=== PATIENT | male | born 1950 | race Caucasian/White ===

== ENCOUNTER 2017-02-19 22:41 | Inpatient (IN) | payer OTHER, BC ==
[~2017-02-19] VITALS: Ht 190.5 cm; Wt 96.8 kg
[~2017-02-19 22:41] MED LIST: IOHEXOL 350 MG/ML 10 ML VIAL (for RAD DIAG) IVCONTRAST ONE
[2017-02-19 22:43] VITALS: BP 157/83; PULSE 72; RESP 24; TEMP 97.8; O2SAT 96
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
[2017-02-19] MEDS ORDERED: DIPHTH/TETANUS/ACEL PERTUSSIS (BOOSTER) 0.5 ML VIAL/PFS IM ONE (23:00)
[2017-02-19 23:16] LABS: AUTOMATED NEUTROPHIL # 10.7 TH/MM3 (1.8-7.7); BASOPHIL % 0.3 % (0.0-2.0); EOSINOPHIL # 0.1 TH/MM3 (0-0.4); HEMATOCRIT 40.5 % (39.0-51.0); HEMOGLOBIN 13.7 GM/DL (13.0-17.0); LYMPH % 18.6 % (9.0-44.0); LYMPHOCYTE # 2.7 TH/MM3 (1.0-4.8); MEAN CORPUSCULAR HEMOGLOBIN 30.7 PG (27.0-34.0); MEAN CORPUSCULAR HGB CONC 33.7 % (32.0-36.0); MEAN PLATELET VOLUME 8.9 FL (7.0-11.0); MONO % 7.5 % (0.0-8.0); MONOCYTE # 1.1 TH/MM3 (0-0.9); NEUT % 72.6 % (16.0-70.0); PLATELET COUNT 342 TH/MM3 (150-450); RED BLOOD COUNT 4.45 MIL/MM3 (4.50-5.90); RED CELL DISTRIBUTION WIDTH 13.6 % (11.6-17.2); WHITE BLOOD COUNT 14.7 TH/MM3 (4.0-11.0)
[2017-02-19 23:26] LABS: PROTHROMBIN TIME - PATIENT 10.5 SEC (9.8-11.6)
[2017-02-19 23:29] LABS: BICARBONATE 22.6 MEQ/L (21.0-32.0); CALCIUM 9.1 MG/DL (8.5-10.1); CREATININE 1.18 MG/DL (0.60-1.30)
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
[2017-02-20] VITALS (7 sets, daily range): BP systolic 131–151; BP diastolic 76–81; PULSE 66–76; RESP 18; TEMP 98.1–99.2; O2SAT 92–98
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
[2017-02-20] MEDS ORDERED: LIDOCAINE HCL 1% 50 ML VIAL INFIL ONE (00:30)
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
[2017-02-20] MEDS ORDERED: ONDANSETRON HCL 4 MG/2 ML VIAL IV PUSH PRN (06:30)
[2017-02-20] MEDS ORDERED: MORPHINE SULFATE 8 MG/ML INJ IV PUSH PRN (06:30)
[2017-02-20] MEDS ORDERED: LACTULOSE SYRUP 20 GM/30 ML CUP PO PRN (06:30)
[2017-02-20] MEDS: ACETAMINOPHEN 1000 MG/100 ML 100 ML IV SCH ×4 (06:45→23:53)
[2017-02-20] MEDS: METHOCARBAMOL 500 MG TAB PO SCH ×3 (06:46→19:57)
[2017-02-20] MEDS: LIDOCAINE HCL 5% PATCH T-DERMAL SCH (08:30)
[2017-02-20] MEDS: FOLIC ACID 1 MG TAB PO SCH (08:30)
[2017-02-20] MEDS: DOCUSATE SODIUM 50 MG/SENNA 8.6 MG TAB PO SCH ×2 (08:30→19:58)
[2017-02-20] MEDS: THIAMINE HCL 100 MG TAB PO SCH (08:30)
[2017-02-20] MEDS: BACITRACIN TOP OINT 15 GM TUBE TOP SCH ×2 (08:30→19:58)
[2017-02-20] MEDS: MULTIVITAMIN TAB PO SCH (08:31)
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
[2017-02-20 10:20] LABS: AUTOMATED NEUTROPHIL # 13.6 TH/MM3 (1.8-7.7); BASOPHIL % 0.1 % (0.0-2.0); HEMATOCRIT 41.3 % (39.0-51.0); HEMOGLOBIN 13.7 GM/DL (13.0-17.0); LYMPH % 6.2 % (9.0-44.0); MEAN CELL VOLUME 90.8 FL (80.0-100.0); MEAN CORPUSCULAR HEMOGLOBIN 30.2 PG (27.0-34.0); MEAN CORPUSCULAR HGB CONC 33.3 % (32.0-36.0); MEAN PLATELET VOLUME 8.9 FL (7.0-11.0); MONO % 11.3 % (0.0-8.0); MONOCYTE # 1.9 TH/MM3 (0-0.9); NEUT % 82.4 % (16.0-70.0); PLATELET COUNT 333 TH/MM3 (150-450); RED BLOOD COUNT 4.54 MIL/MM3 (4.50-5.90); RED CELL DISTRIBUTION WIDTH 13.7 % (11.6-17.2); WHITE BLOOD COUNT 16.5 TH/MM3 (4.0-11.0)
[2017-02-20 10:48] LABS: ALBUMIN 3.7 GM/DL (3.4-5.0); AST (GOT) 126 U/L (15-37); BICARBONATE 27.9 MEQ/L (21.0-32.0); BLOOD UREA NITROGEN 10 MG/DL (7-18); CALCIUM 8.9 MG/DL (8.5-10.1); CHLORIDE 105 MEQ/L (98-107); CREATININE 1.03 MG/DL (0.60-1.30); GLOMERULAR FILTRATION RATE 73 ML/MIN (>89); GLUCOSE,RANDOM 93 MG/DL (74-106); SODIUM (NA) 141 MEQ/L (136-145)
[2017-02-20 10:53] LABS: ALKALINE PHOSPHATASE 84 U/L (45-117); ALT (GPT) 95 U/L (12-78); TOTAL BILIRUBIN ADULT 0.5 MG/DL (0.2-1.0); TOTAL PROTEIN 6.8 GM/DL (6.4-8.2)
[2017-02-20] MEDS ORDERED: BACITRACIN TOP OINT 15 GM TUBE TOP SCH (11:15)
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
[2017-02-20] MEDS ORDERED: KETOROLAC TROMETHAMINE 30 MG/ML (IVP) VIAL IV PUSH SCH (12:00)
[2017-02-20] MEDS: ENOXAPARIN SODIUM 30 MG/0.3 ML SYRINGE SQ SCH ×2 (13:13→23:53)
[2017-02-20] MEDS: RESP: ALBUTEROL 2.5 MG/IPRATROPIUM 0.5 MG NEB (PRN) NEB ×2 (13:49→19:29)
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
[2017-02-21] VITALS (9 sets, daily range): BP systolic 144–192; BP diastolic 72–86; PULSE 58–99; RESP 16–18; TEMP 98.2–101.8; O2SAT 92–97
[2017-02-21] MEDS: RESP: ALBUTEROL 2.5 MG/IPRATROPIUM 0.5 MG NEB (PRN) NEB ×3 (04:06→20:29)
[2017-02-21] MEDS: METHOCARBAMOL 500 MG TAB PO SCH ×3 (05:10→22:43)
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
[2017-02-21 07:22] LABS: HEMATOCRIT 42.7 % (39.0-51.0); HEMOGLOBIN 14.3 GM/DL (13.0-17.0); MEAN CELL VOLUME 91.3 FL (80.0-100.0); MEAN CORPUSCULAR HEMOGLOBIN 30.6 PG (27.0-34.0); MEAN CORPUSCULAR HGB CONC 33.5 % (32.0-36.0); MEAN PLATELET VOLUME 9.6 FL (7.0-11.0); PLATELET COUNT 347 TH/MM3 (150-450); RED BLOOD COUNT 4.67 MIL/MM3 (4.50-5.90); RED CELL DISTRIBUTION WIDTH 13.8 % (11.6-17.2); WHITE BLOOD COUNT 19.4 TH/MM3 (4.0-11.0)
[2017-02-21 07:48] LABS: BICARBONATE 24.7 MEQ/L (21.0-32.0); CALCIUM 9.5 MG/DL (8.5-10.1); CREATININE 1.17 MG/DL (0.60-1.30)
[2017-02-21] MEDS: MULTIVITAMIN TAB PO SCH (07:54)
[2017-02-21] MEDS: FOLIC ACID 1 MG TAB PO SCH (07:54)
[2017-02-21] MEDS: LIDOCAINE HCL 5% PATCH T-DERMAL SCH (07:54)
[2017-02-21] MEDS: THIAMINE HCL 100 MG TAB PO SCH (07:54)
[2017-02-21] MEDS: KETOROLAC TROMETHAMINE 30 MG/ML (IVP) VIAL IV PUSH SCH ×3 (07:55→20:50)
[2017-02-21] MEDS: DOCUSATE SODIUM 50 MG/SENNA 8.6 MG TAB PO SCH ×2 (07:55→20:50)
[2017-02-21] MEDS: SODIUM CHLORIDE 0.9% FLUSH 10 ML FLUSH IV FLUSH PRN ×2 (07:56→20:49)
[2017-02-21] MEDS: ENALAPRILAT 1.25 MG/ML VIAL IV PUSH PRN ×2 (07:56→16:21)
[2017-02-21] MEDS: BACITRACIN TOP OINT 15 GM TUBE TOP SCH ×2 (09:00→20:55)
--- NOTE | 2017-02-21 11:48 | HHI.PR ---
Subjective Subjective Notes Feeling better Still has thoracic pain Objective Vitals/I&O Vital Signs Date Time Temp Pulse Resp B/P (MAP) Pulse Ox O2 Delivery O2 Flow Rate FiO2 02/21/17 08:17 92 Nasal Cannula 4.00 02/21/17 08:00 98.6 71 18 181/85 (117) Labs Laboratory Tests Test 02/21/17 04:30 White Blood Count 19.4 Red Blood Count 4.67 Hemoglobin 14.3 Hematocrit 42.7 Mean Corpuscular Volume 91.3 Mean Corpuscular Hemoglobin 30.6 Mean Corpuscular Hemoglobin Concent 33.5 Red Cell Distribution Width 13.8 Platelet Count 347 Mean Platelet Volume 9.6 Blood Urea Nitrogen 14 Creatinine 1.17 Random Glucose 110 Calcium Level 9.5 Sodium Level 137 Potassium Level 4.1 Chloride Level 103 Carbon Dioxide Level 24.7 Anion Gap 9 Estimat Glomerular Filtration Rate 63 Radiology Last Impressions Chest X-Ray 02/20/1725 Signed Impressions: Service Date/Time: Monday, February 20, 2017 07:59 - CONCLUSION: Minimal bibasilar patchiness consistent with atelectasis and/or pneumonia. Clinical correlation is recommended. Pelon Vera MD Maxillofacial CT 02/19/172250 Signed Impressions: Service Date/Time: February 23:43 - CONCLUSION: Intact facial bones. Acute on chronic-appearing sinus disease. Joseph Colon MD Head CT 02/19/172250 Signed Impressions: Service Date/Time: February 23:41 - CONCLUSION: Negative noncontrast head CT. Joseph Colon MD Chest CT 02/19/172250 Signed Impressions: Service Date/Time: February 23:50 - CONCLUSION: 1. Multiple right lower rib fractures with a tiny hemothorax and small size focal area of chest wall emphysema. No pneumothorax. 2. No acute abnormality of the heart or mediastinum. Coronary artery calcification noted. Joseph Colon MD Cervical Spine CT 02/19/172250 Signed Impressions: Service Date/Time: February 23:43 - CONCLUSION: Intact cervical spine. Multilevel degenerative changes as above. Joseph Colon MD Abdomen/Pelvis CT 02/19/17 4557 Signed Impressions: Service Date/Time: February 23:50 - CONCLUSION: No acute abnormality of the abdomen/pelvis. Joseph Colon MD Cardiovascular: Regular Lungs: Clear Abdomen: Non-distended A/P Assessment and Plan stable overall OOB PT IS DVT prophylaxis Marie Mosley MD Feb 21, 2017 11:48
[2017-02-21] MEDS: ENOXAPARIN SODIUM 30 MG/0.3 ML SYRINGE SQ SCH ×2 (12:40→22:43)
[2017-02-21] MEDS ORDERED: ACETAMINOPHEN 325 MG TAB PO PRN (20:45)
[2017-02-22] VITALS (9 sets, daily range): BP systolic 132–157; BP diastolic 65–86; PULSE 61–103; RESP 18; TEMP 95.9–99.5; O2SAT 92–97
[2017-02-22] MEDS: KETOROLAC TROMETHAMINE 30 MG/ML (IVP) VIAL IV PUSH SCH ×4 (03:34→20:08)
[2017-02-22] MEDS: METHOCARBAMOL 500 MG TAB PO SCH ×3 (05:02→22:57)
[2017-02-22] MEDS: BACITRACIN TOP OINT 15 GM TUBE TOP SCH ×2 (09:00→20:08)
[2017-02-22] MEDS: MULTIVITAMIN TAB PO SCH (10:13)
[2017-02-22] MEDS: DOCUSATE SODIUM 50 MG/SENNA 8.6 MG TAB PO SCH ×2 (10:13→20:07)
[2017-02-22] MEDS: THIAMINE HCL 100 MG TAB PO SCH (10:13)
[2017-02-22] MEDS: FOLIC ACID 1 MG TAB PO SCH (10:13)
[2017-02-22] MEDS: LIDOCAINE HCL 5% PATCH T-DERMAL SCH (10:15)
--- NOTE | 2017-02-22 12:57 | HHI.PR ---
Subjective Subjective Notes Feeling better less pain Objective Vitals/I&O Vital Signs Date Time Temp Pulse Resp B/P (MAP) Pulse Ox O2 Delivery O2 Flow Rate FiO2 02/22/17 09:31 96 Nasal Cannula 4.00 02/22/17 08:06 61 02/22/17 07:15 99.5 18 138/67 (90) Radiology Last Impressions Chest X-Ray 02/20/17 0625 Signed Impressions: Service Date/Time: Monday, February 20, 2017 07:59 - CONCLUSION: Minimal bibasilar patchiness consistent with atelectasis and/or pneumonia. Clinical correlation is recommended. Pelon Vera MD Maxillofacial CT 02/19/172250 Signed Impressions: Service Date/Time: February 23:43 - CONCLUSION: Intact facial bones. Acute on chronic-appearing sinus disease. Joseph Colon MD Head CT 02/19/172250 Signed Impressions: Service Date/Time: February 23:41 - CONCLUSION: Negative noncontrast head CT. Joseph Colon MD Chest CT 02/19/172250 Signed Impressions: Service Date/Time: February 23:50 - CONCLUSION: 1. Multiple right lower rib fractures with a tiny hemothorax and small size focal area of chest wall emphysema. No pneumothorax. 2. No acute abnormality of the heart or mediastinum. Coronary artery calcification noted. Joseph Colon MD Cervical Spine CT 02/19/172250 Signed Impressions: Service Date/Time: February 23:43 - CONCLUSION: Intact cervical spine. Multilevel degenerative changes as above. Joseph Colon MD Abdomen/Pelvis CT 02/19/172250 Signed Impressions: Service Date/Time: February 23:50 - CONCLUSION: No acute abnormality of the abdomen/pelvis. Joseph Colon MD Cardiovascular: Regular Lungs: Clear Abdomen: Non-distended A/P Assessment and Plan stable overall OOB PT IS DVT prophylaxis Repeat chest x-ray tomorrow morning Anticipate discharge in a.m. Marie Mosley MD Feb 22, 2017 12:57
[2017-02-22] MEDS: ENOXAPARIN SODIUM 30 MG/0.3 ML SYRINGE SQ SCH ×2 (13:10→22:57)
[2017-02-22] MEDS ORDERED: MAGNESIUM HYDROXIDE SUSP 30 ML CUP PO PRN (15:00)
[2017-02-22] MEDS: RESP: ALBUTEROL 2.5 MG/IPRATROPIUM 0.5 MG NEB (PRN) NEB (19:42)
[2017-02-22] MEDS: SODIUM CHLORIDE 0.9% FLUSH 10 ML FLUSH IV FLUSH PRN (20:07)
[2017-02-23] VITALS: BP 130/72; PULSE 77; RESP 16; TEMP 99.5; O2SAT 95
[2017-02-23] MEDS: KETOROLAC TROMETHAMINE 30 MG/ML (IVP) VIAL IV PUSH SCH ×3 (03:48→14:56)
[2017-02-23 04:00] VITALS: BP 151/77; PULSE 84; RESP 19; TEMP 99.6; O2SAT 96
[2017-02-23] MEDS: METHOCARBAMOL 500 MG TAB PO SCH ×2 (05:23→14:56)
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
[2017-02-23 07:40] VITALS: O2SAT 95
[2017-02-23 08:10] VITALS: BP 150/78; PULSE 97; RESP 17; TEMP 99; O2SAT 97
[2017-02-23] MEDS: LIDOCAINE HCL 5% PATCH T-DERMAL SCH (08:13)
[2017-02-23] MEDS: DOCUSATE SODIUM 50 MG/SENNA 8.6 MG TAB PO SCH (08:13)
[2017-02-23] MEDS: BACITRACIN TOP OINT 15 GM TUBE TOP SCH (08:14)
[2017-02-23] MEDS: LACTULOSE SYRUP 20 GM/30 ML CUP PO SCH ×2 (08:14→08:17)
[2017-02-23] MEDS: SODIUM CHLORIDE 0.9% FLUSH 10 ML FLUSH IV FLUSH PRN (08:15)
[2017-02-23 09:35] VITALS: PULSE 90
[2017-02-23 12:13] VITALS: BP 151/82; PULSE 69; RESP 16; TEMP 98; O2SAT 95
[2017-02-23] MEDS: ENOXAPARIN SODIUM 30 MG/0.3 ML SYRINGE SQ SCH (12:21)
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
[2017-02-23] MEDS ORDERED: SENN1TAB PO (14:59)
[2017-02-23] MEDS ORDERED: MAGN400S PO (14:59)
[2017-02-23] MEDS ORDERED: PERC5TAB12 PO (14:59)
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
== END 2017-02-23 17:01 | disposition home or self-care (01) | DRG 88 ==
LOC: NEPE 22:41 → NEDA 02-20 01:06 → N06B 02-20 02:26 → N06A 02-20 17:42
PROVIDERS: ADMIT Surgery; ATTEND Surgery
PROC: 08QPXZZ Repair Left Upper Eyelid, External Approach (ICD-10-PCS; principal; 2017-02-20)
DX: S06.0X9A Concussion with loss of consciousness of unspecified duration, initial encounter (principal); S27.1XXA Traumatic hemothorax, initial encounter; S27.321A Contusion of lung, unilateral, initial encounter; S22.41XA Multiple fractures of ribs, right side, initial encounter for closed fracture; R45.851 Suicidal ideations; J98.11 Atelectasis; S01.112A Laceration without foreign body of left eyelid and periocular area, initial encounter; S40.211A Abrasion of right shoulder, initial encounter; S50.811A Abrasion of right forearm, initial encounter; F10.129 Alcohol abuse with intoxication, unspecified; V48.5XXA Car driver injured in noncollision transport accident in traffic accident, initial encounter; Y90.6 Blood alcohol level of 120-199 mg/100 ml; Y92.410 Unspecified street and highway as the place of occurrence of the external cause; Z72.0 Tobacco use
CPT/HCPCS: 12013; 70450; 70486; 71010; 71260; 72125; 74177; 80048; 80053; 80307; 82435; 82565; 82947; 84132; 84295; 84520; 85025; 85027; 85610; 85730; 86850; 86900; 86901; 94150; 94640; 94664; 94667; J0131; J1650; J1885; Q9967